=== PATIENT | female | born 1990 | race Two or more races ===

== ENCOUNTER 2020-06-18 13:59 | Day surgery (SDC) | payer OTHER ==
[2020-06-18 14:53] VITALS: BMI 31.4
[2020-06-18 15:54] LABS: BASO % 0.5 % (0-2.0); EOS % 0.6 % (0-4.5); HEMOGLOBIN 8.9 GM/dL (10.7-15.3); MCH 21.4 pg (25.7-33.7); MCHC 32.9 g/dl (32.0-36.0); MEAN PLT VOLUME 8.5 fl (7.5-11.1); NEUT % 67.9 % (42.8-82.8); PLATELET COUNT 250 K/MM3 (134-434); RBC 4.16 M/mm3 (3.60-5.2); RDW 18.7 % (11.6-15.6); WHITE BLOOD COUNT 10.5 K/mm3 (4.0-10.0)
[2020-06-18] MEDS ORDERED: ceFAZolin SODIUM 1 GM VIAL ONE (18:15)
[2020-06-18] MEDS ORDERED: ceFAZolin SODIUM 1 GM VIAL IVPB ONE (18:36)
[2020-06-18] MEDS ORDERED: INDOMETHACIN 50 MG CAPSULE PO ONE (19:09)
[2020-06-18 21:03] VITALS: BP 121/68; PULSE 67; TEMP 99
== END 2020-06-18 21:45 | disposition home or self-care (01) ==
LOC: JASU-SURG 13:59
PROVIDERS: ATTEND Obstetrics & Gynecology Maternal & Fetal Medicine
PROC: 0UVC7ZZ Restriction of Cervix, Via Natural or Artificial Opening (ICD-10-PCS; principal; 2020-06-18 17:00)
DX: O34.32 Maternal care for cervical incompetence, second trimester (principal)
CPT/HCPCS: 36415; 85025; 86850; 86900; 86901; 94760; C9803; U0003; U0005

== ENCOUNTER 2020-10-27 08:59 | Day surgery (SDC) | payer OTHER ==
[2020-10-27 09:59] LABS: BASO % 0.7 % (0-2.0); EOS % 0.9 % (0-4.5); HEMATOCRIT 23.2 % (32.4-45.2); HEMOGLOBIN 7.2 GM/dL (10.7-15.3); LYMPH % 35.2 % (8-40); MCHC 30.9 g/dl (32.0-36.0); MEAN CELL VOLUME 58.6 fl (80-96); MEAN PLT VOLUME 8.5 fl (7.5-11.1); MONO % 7.7 % (3.8-10.2); NEUT % 55.5 % (42.8-82.8); PLATELET COUNT 265 10^3/uL (134-434); RBC 3.96 M/mm3 (3.60-5.2); RDW 22.7 % (11.6-15.6)
[2020-10-27 10:00] LABS: MCH 18.1 pg (25.7-33.7)
[2020-10-27 10:01] VITALS: BMI 33.4
[2020-10-27 10:36] LABS: ANISOCYTOSIS 3+; MACROCYTOSIS 1+; PLATELET ESTIMATE NORMAL; TARGET CELLS 1+
[2020-10-27] MEDS ORDERED: IRON SUCROSE INJECTION 300 MG in SODIUM CHLORIDE 235 ML IVPB ONE (13:30)
[2020-10-27] MEDS ORDERED: PROMETHAZINE HCL 25 MG/1 ML VIAL IVPUSH PRN (14:44)
[2020-10-27] MEDS ORDERED: ONDANSETRON 4 MG/2 ML VIAL IVPUSH PRN (14:44)
[2020-10-27] MEDS ORDERED: LACTATED RINGERS SOLUTION 1,000 ML IV SCH (14:45)
[2020-10-27] MEDS ORDERED: IRON SUCROSE COMPLEX 100 MG/5 ML VIAL IVPB ONE (15:15)
[2020-10-27 19:22] VITALS: BP 109/62; PULSE 72; TEMP 98.3
== END 2020-10-27 19:00 | disposition home or self-care (01) ==
LOC: JASU-SURG 08:59
PROVIDERS: ATTEND Obstetrics & Gynecology Maternal & Fetal Medicine
PROC: 0UCC7ZZ Extirpation of Matter from Cervix, Via Natural or Artificial Opening (ICD-10-PCS; principal; 2020-10-27 10:30)
DX: O34.33 Maternal care for cervical incompetence, third trimester (principal); Z3A.37 37 weeks gestation of pregnancy
CPT/HCPCS: 36415; 85025; 86850; 86900; 86901; 94760; C9803; J1756; U0003; U0005

== ENCOUNTER 2020-11-13 08:15 | Inpatient (IN) | payer OTHER ==
[2020-11-13 09:56] LABS: BASO % 0.6 % (0-2.0); EOS % 0.5 % (0-4.5); HEMOGLOBIN 7.5 GM/dL (10.7-15.3); MCH 20.1 pg (25.7-33.7); MCHC 32.4 g/dl (32.0-36.0); MEAN PLT VOLUME 8.5 fl (7.5-11.1); MONO % 7.2 % (3.8-10.2); NEUT % 67.7 % (42.8-82.8); PLATELET COUNT 272 10^3/uL (134-434); RBC 3.71 M/mm3 (3.60-5.2); RDW 26.8 % (11.6-15.6); WHITE BLOOD COUNT 7.3 K/mm3 (4.0-10.0)
[2020-11-13 10:01] LABS: INR 1.06 (0.83-1.09)
[2020-11-13 10:03] LABS: ACTIVATED PTT 23.7 SECONDS (25.2-36.5)
[2020-11-13 10:23] LABS: CALCIUM 8.2 mg/dL (8.5-10.1)
[2020-11-13 10:24] LABS: BLOOD UREA NITROGEN 8.8 mg/dL (7-18)
[2020-11-13 10:27] LABS: CREATININE 0.5 mg/dL (0.55-1.3)
[2020-11-13 11:02] LABS: ANISOCYTOSIS 3+; MACROCYTOSIS 0; PLATELET ESTIMATE NORMAL; TARGET CELLS 1+
[2020-11-13 11:07] VITALS: BMI 34.4
[2020-11-13] MEDS ORDERED: IRON SUCROSE INJECTION 300 MG in SODIUM CHLORIDE 235 ML IVPB ONE (11:57)
[2020-11-13] MEDS ORDERED: DEXTROSE 5%-LACTATED RINGERS 1,000 ML IV SCH (12:00)
[2020-11-13] MEDS ORDERED: MISOPROSTOL 100 MCG TABLET PV PRN (14:00)
[2020-11-13] MEDS ORDERED: OXYTOCIN 20 UNITS in 0.9% NS 20 UNIT/1,000 ML INFUS.BAG IV ONE ×2 (18:57→20:13)
[2020-11-13] MEDS ORDERED: LIDOCAINE HCL 1% PRESERVATIVE FREE - 30ML VIAL ONE (19:05)
[2020-11-13] MEDS: ACETAMINOPHEN 325 MG TABLET (FP) PO PRN (19:10)
[2020-11-13] MEDS: IBUPROFEN 600 MG TABLET (FP) PO PRN (19:10)
[2020-11-13] MEDS ORDERED: IBUPROFEN 600 MG TABLET (FP) PO ONE (19:21)
[2020-11-13] MEDS ORDERED: ACETAMINOPHEN 325 MG TABLET (FP) ONE (19:21)
[2020-11-13] MEDS ORDERED: BENZOCAINE 20% 57 GM BOTTLE TP PRN (19:33)
[2020-11-13] MEDS ORDERED: BENZOCAINE 28 GM HEMORRHOIDAL OINTMENT TP PRN (19:33)
[2020-11-13] MEDS ORDERED: WITCH HAZEL 50% (TUCKS) 40 PAD/JAR PAD TP PRN (19:33)
[2020-11-13] MEDS ORDERED: BISACODYL 10 MG SUPP.RECT RC PRN (19:33)
[2020-11-13] MEDS ORDERED: OXYTOCIN 20 UNITS in 0.9% NS 20 UNIT/1,000 ML INFUS.BAG IV SCH (19:45)
[2020-11-14] MEDS: IBUPROFEN 600 MG TABLET (FP) PO PRN ×2 (07:05→16:50)
[2020-11-14] MEDS: FERROUS SO4 325 MG TABLET (FP) PO SCH ×3 (07:05→16:50)
[2020-11-14] MEDS: ACETAMINOPHEN 325 MG TABLET (FP) PO PRN (07:06)
[2020-11-14 07:26] LABS: BASO % 0.4 % (0-2.0); EOS % 1.1 % (0-4.5); HEMATOCRIT 22.1 % (32.4-45.2); HEMOGLOBIN 7.2 GM/dL (10.7-15.3); MCH 20.4 pg (25.7-33.7); MCHC 32.7 g/dl (32.0-36.0); MEAN CELL VOLUME 62.3 fl (80-96); MEAN PLT VOLUME 8.4 fl (7.5-11.1); MONO % 8.6 % (3.8-10.2); NEUT % 65.9 % (42.8-82.8); PLATELET COUNT 259 10^3/uL (134-434); RBC 3.54 M/mm3 (3.60-5.2); RDW 25.8 % (11.6-15.6)
[2020-11-14] MEDS: PRENATAL VITAMINS W/ FOLIC ACID TABLET (FP) PO SCH (11:16)
[2020-11-14] MEDS ORDERED: SENNOSIDES/DOCUSATE COMBO (SENNA PLUS) TABLET (UD) PO PRN (22:00)
[2020-11-15] MEDS: FERROUS SO4 325 MG TABLET (FP) PO SCH ×3 (08:56→13:54)
[2020-11-15] MEDS: PRENATAL VITAMINS W/ FOLIC ACID TABLET (FP) PO SCH (09:54)
[2020-11-15] MEDS: IBUPROFEN 600 MG TABLET (FP) PO PRN (10:23)
[2020-11-15 13:48] VITALS: BP 109/69; PULSE 68; TEMP 97.9
== END 2020-11-15 12:20 | disposition home or self-care (01) | DRG 560 ==
LOC: JLDR 08:15 → J3W 21:35
PROVIDERS: ADMIT Obstetrics & Gynecology Maternal & Fetal Medicine; ATTEND Obstetrics & Gynecology Maternal & Fetal Medicine
PROC: 0W8NXZZ Division of Female Perineum, External Approach (ICD-10-PCS; principal; 2020-11-13)
PROC: 10E0XZZ Delivery of Products of Conception, External Approach (ICD-10-PCS; 2020-11-13)
PROC: 3E0DXGC Introduction of Other Therapeutic Substance into Mouth and Pharynx, External Approach (ICD-10-PCS; 2020-11-13)
DX: O34.43 Maternal care for other abnormalities of cervix, third trimester (principal); O99.02 Anemia complicating childbirth; D50.9 Iron deficiency anemia, unspecified; Z3A.39 39 weeks gestation of pregnancy; Z37.0 Single live birth
CPT/HCPCS: 36415; 59409; 80048; 85025; 85610; 85730; 86780; 86850; 86900; 86901; C9803; J1756; U0003; U0005